=== PATIENT | male | born 1955 | race Caucasian/White ===

== ENCOUNTER 2017-08-02 10:33 | Emergency (ER) | payer BC ==
[~2017-08-02] VITALS: Ht 170.2 cm; Wt 74.8 kg
[2017-08-02] MEDS ORDERED: LIDOCAINE 2% JEL UROJET 10 ML MM ONE (11:00)
[2017-08-02 11:06] LABS: BASOPHILS % (AUTO) 0.5 % (0.0-2.0); EOSINOPHILS % (AUTO) 0.6 % (0.0-6.0); HEMATOCRIT 40 % (39-51); HEMOGLOBIN 13.5 g/dL (13.5-17.5); LYMPHOCYTES % (AUTO) 20.8 % (20.0-44.0); MEAN CORPUSCULAR HEMOGLOBIN 33 PG (26.0-33.0); MEAN CORPUSCULAR HGB CONC 34 g/dl (31.0-36.0); MEAN CORPUSCULAR VOLUME 96 fL (80-96); MONOCYTES # (AUTO) 0.3 /CMM (0.1-1.30); MONOCYTES % (AUTO) 5.7 % (2.0-12.0); NEUTROPHILS # (AUTO) 3.7 /CMM (1.8-8.9); NEUTROPHILS % (AUTO) 72.4 % (43.0-81.0); PLATELET COUNT (AUTO) 251 /CMM (150-450); RDW COEFFICIENT OF VARIATION 13.2 (11.5-15.0); RED BLOOD CELL COUNT(AUTO) 4.14 MIL/uL (4.5-6.0)
[2017-08-02 11:19] LABS: CALCIUM, SERUM 9.4 mg/dL (8.5-10.1); CREATININE 1.4 mg/dL (0.6-1.3); POTASSIUM 4.2 mmol/L (3.5-5.1)
--- NOTE | 2017-08-02 11:30 | NUR ---
assume pt care. resting in bed. f/c inserted by previous nurse. pt is comfortable. stable vitals. will cotinue to monitor.
[2017-08-02 11:39] LABS: APPEARANCE,URINE Clear (CLEAR); BILIRUBIN,URINE Negative (NEGATIVE); BLOOD, URINE Moderate Ery/uL (NEGATIVE); COLOR,URINE Yellow (YELLOW); KETONES,URINE Negative (NEGATIVE); LEUKOCYTE ESTERASE ,URINE Negative (NEGATIVE); NITRITE, URINE Negative (NEGATIVE); PROTEIN,URINE Negative (NEGATIVE); UGLUCOSE Negative (NEGATIVE); UROBILINOGEN,URINE 0.2 EU/dL (0.2)
[2017-08-02 11:43] LABS: BACTERIA,URINE None seen /HPF (None Seen); SQUAMOUS EPITHELIAL CELL,UR Rare /HPF (None Seen); WBC,URINE 0-2 /HPF (0-3)
--- NOTE | 2017-08-02 13:17 | NUR ---
pt is discharge home w/ f/c. advised to see a urologist manuel. Patient discharged to home in stable condition. Written and verbal after care instructions given. Patient verbalizes understanding of instruction.
[2017-08-02 13:18] VITALS: BP 132/77
== END 2017-08-02 13:19 | disposition home or self-care (01) ==
LOC: ER 10:41
DX: R33.9 Retention of urine, unspecified (principal); N28.9 Disorder of kidney and ureter, unspecified
CPT/HCPCS: 36415; 51702; 80048; 81001; 85025; 87086; 99284; A4606; J7030; Z7610; 81000-TC

== ENCOUNTER 2021-07-09 06:56 | Emergency (ER) | payer BC, MEDICARE ==
[~2021-07-09] VITALS: Ht 175.3 cm; Wt 90.7 kg
[2021-07-09] MEDS ORDERED: LIDOCAINE 2% JEL UROJET 10 ML MM ONE (07:00)
--- NOTE | 2021-07-09 07:10 | NUR ---
PT BIB SELF C/O BEING UNABLE TO PEE SINCE LAST NIGHT. AAOX4, AMBULATORY, BREATHING EVEN AND UNLABORED, PULSES 2+ BILATERALLY. ASSISTED TO ER BED 4.
[2021-07-09 07:49] LABS: BACTERIA,URINE Rare /HPF (None Seen); BILIRUBIN,URINE Negative (NEGATIVE); COLOR,URINE YELLOW (YELLOW); LEUKOCYTE ESTERASE ,URINE Negative (NEGATIVE); NITRITE, URINE Negative (NEGATIVE); PROTEIN,URINE Negative (NEGATIVE); RBC,URINE 0-2 /HPF (0-2); SQUAMOUS EPITHELIAL CELL,UR Rare /HPF (None Seen); UGLUCOSE Negative (NEGATIVE); UROBILINOGEN,URINE 0.2 EU/dL (0.2); WBC,URINE 0-2 /HPF (0-3)
--- NOTE | 2021-07-09 08:05 | NUR ---
Patient discharged to home in stable condition. Written and verbal after care instructions given. Patient verbalizes understanding of instruction.
[2021-07-09 08:11] VITALS: BP 141/89
== END 2021-07-09 08:06 | disposition home or self-care (01) ==
LOC: ER 07:00
DX: R33.9 Retention of urine, unspecified (principal)
CPT/HCPCS: 51702; 81001; 99284; J3490